=== PATIENT | female | born 1980 | race Caucasian/White ===

== ENCOUNTER 2016-05-23 07:38 | Emergency (ER) | payer OTHER ==
[2016-05-23 07:52] VITALS: BP 133/85
--- NOTE | 2016-05-23 09:44 | UC ---
Sintia Mir Michael, scribed for Tahmina Valerio DO on 05/23/16 at 0902 . Respiratory Complaint HPI - HPI Summary HPI Summary: 36 y/o female comes to [facility] presenting with intermittant episodes of a cough and wheezing episodes for the past~12 hours. Pt reports that 2 weeks ago, she developed a head cold that included some mild coughing. Those sx had all but resolved as of yesterday. The pt reports that the cough has worsened one day ago with increasing SOB. Recently, the pt has had to use her rescue inhaler to subside the cough and wheezing episodes. The pt denies ear ache, sore throat, fever, abd pain, and n/v/d. The PMHx is significant for asthma, and the FHx is significant for HTN. - History of Current Complaint Chief Complaint: UCRespiratory Stated Complaint: WHEEZING ASTHMA Time Seen by Provider: 05/23/16 08:21 Hx Obtained From: Patient, Medical Records Hx Last Menstrual Period: 05/14/16 ?: No Onset/Duration: Gradual Onset, Lasting Weeks, Still Present, Worse Since - one day ago Timing: Intermittent Episodes Severity Initially: Moderate Severity Currently: Moderate Pain Intensity: 0 Pain Scale Used: 0-10 Numeric Character: Cough: Nonproductive Aggravating Factors: Recumbent Position Alleviating Factors: Upright Position Associated Signs And Symptoms: Positive: Negative - ear ache, sore throat, fever , abd pain, and n/v/d, Dyspnea, Wheezing - non-productive cough. SOB., URI, Sinus Discomfort - resolved. Negative: Fever, Chills, Pleuritic Chest Pain, Hemoptysis, Dizziness, Calf Pain, Calf Swelling, Nasal Congestion, Hoarseness - Allergies/Home Medications Allergies/Adverse Reactions: Allergies Allergy/AdvReac Type Severity Reaction Status Date / Time seasonal allergies Allergy Hives/Diff. Uncoded 05/23/16 07:52 Breathing/I tching Home Medications: Home Medications Albuterol Sulfate [Proair Respiclick] 108 mcg IN 05/23/16 [History] Budesonide Flexhaler 90 (NF) [Pulmicort Flexhaler 90 mcg/act (NF)] 2 puff INH BID 05/23/16 [History Confirmed 05/23/16] Fexofenadine (NF) [Yenny 180 (NF)] 180 mg PO 05/23/16 [History] PMH/Surg Hx/FS Hx/Imm Hx Respiratory History Of: Reports: Asthma - Surgical History Surgical History: Yes Surgery Procedure, Year, and Place: pylonidal cyst. wisdom teeth - Family History Known Family History: Positive: Hypertension Negative: Cardiac Disease, Diabetes - Social History Occupation: Employed Full-time Lives: Alone Alcohol Use: Weekly Substance Use Type: None Smoking Status (MU): Never Smoked Tobacco Review of Systems Constitutional: Negative - fever. chills. Skin: Negative Eyes: Negative ENT: Negative - sinus discomfort, nasal congestion, ear ache all resolved. Respiratory: Shortness Of Breath, Cough, Other - wheezing Cardiovascular: Negative Gastrointestinal: Negative - n/v/d Genitourinary: Negative Motor: Negative Neurovascular: Negative Musculoskeletal: Negative Neurological: Negative Psychological: Negative All Other Systems Reviewed And Are Negative: Yes Physical Exam Triage Information Reviewed: Yes Appearance: Well-Appearing, No Pain Distress, Obese Vital Signs: Initial Vital Signs Temp 97.1 F 05/23/16 07:47 Pulse 88 05/23/16 07:47 Resp 18 05/23/16 07:47 BP 133/85 05/23/16 07:47 Pulse Ox 99 05/23/16 07:47 Vital Signs Reviewed: Yes Eyes: Positive: Conjunctiva Clear. Negative: Discharge ENT: Positive: Hearing grossly normal. Negative: Muffled/hoarse voice Neck: Positive: Supple, Nontender Respiratory: Positive: Lungs clear, Normal breath sounds, No respiratory distress, No accessory muscle use, Expiration - prolonged Cardiovascular: Positive: RRR, No Murmur Musculoskeletal: Positive: Strength Intact Neurological: Positive: Alert, Muscle Tone Normal Psychological Exam: Normal Psychological: Positive: Age Appropriate Behavior Skin Exam: Normal - warm. dry. nml color. Diagnostic Evaluation - Laboratory O2 Sat by Pulse Oximetry: 99 Respiratory Course/Dx - Differential Dx/Diagnosis Differential Diagnosis/HQI/PQRI: Asthma, Bronchitis, Lower Resp Infection, Other - uri Provider Diagnoses: asthma Discharge - Discharge Plan Condition: Stable Disposition: HOME Prescriptions: guaiFENesin ER TAB [Mucinex*] 600 mg PO BID PRN #1 box PRN Reason: Cough guaiFENesin/CODIEN 100MG-10MG* [Robitussin AC 100Mg-10Mg*] 5 - 10 ml PO BEDTIME PRN #100 udc MDD 10ml PRN Reason: Cough predniSONE TAB* [Deltasone TAB*] 40 mg PO DAILY #10 tab Patient Education Materials: Asthma (ED) Referrals: Broderick Momin MD [Medical Doctor] - Additional Instructions: INHALED BRONCHODILATORS: You have received a prescription for an inhaled bronchodilator -- a medication which stimulates the airways in the lung to dilate. This improves the flow of air in asthma, bronchitis, and emphysema. These medicines have some similarity to adrenaline, and can cause similar side effects: shakiness, racing heart, and a sense of nervousness. These side effects decrease with time. Contact your doctor if these side effects are severe. Do not over-use the medicine. Too-frequent use of the inhaler may make it ineffective. Call your doctor if the inhaler is not controlling your symptoms at the prescribed doses. COUGH-SUPPRESSANT & EXPECTORANT MEDICATION: You are to use a cough medication as needed for relief of symptoms. This medicine is a combination of an expectorant (to make the mucous thinner and more easily "coughed up") and a cough suppressant (to reduce the frequency of coughing). The cough-suppressant medicine is related to narcotics. You may experience mild nausea and sleepiness. Some patients who are very sensitive to narcotics may have stomach pain from this medicine. Taking the medicine with food reduces these side effects. Do not drive or work with machinery until you know how this medicine affects you. The expectorant should have no side effects. Iodine-containing expectorants (such as organidin) should not be taken by persons with active thyroid disease unless approved by your doctor. Call the doctor if you develop shortness of breath, hives, rash, itching, lightheadedness, or severe nausea and vomiting. EXPECTORANT MEDICATION: An expectorant medicine has been prescribed. This type of drug makes mucous thinner, helping the sinuses, nose, and bronchial tubes to remain free of pus and mucous. Expectorants make a cough less severe and more comfortable, and help infected sinuses drain. In general, antihistamines defeat the purpose of the expectorant by making mucous thicker. They should be avoided unless specifically recommended by your physician. CORTICOSTEROID MEDICATION: You have been given a medicine of the cortisone class. This medication is used to control inflammation or allergy. It is usually only given for a short period of time, until the acute process subsides. There are usually no side effects from short-term use of cortisone-like medications. Some persons feel an increased sense of well-being and are not sleepy at bedtime. Long-term use of cortisone medications is best avoided, unless required for a severe condition. If your condition does not remit, or relapses after the course of corticosteroid medication, you should consult your physician. Contact the physician if you develop lightheadedness, black or tarry stools , swelling of the legs, or significant rapid change in weight. The documentation as recorded by the Sintia wells Michael accurately reflects the service I personally performed and the decisions made by me, Tahmina Valerio DO.
== END 2016-05-23 09:30 | disposition home or self-care (01) ==
LOC: UCEAST 07:38
DX: J45.909 Unspecified asthma, uncomplicated (principal)
CPT/HCPCS: 99212; G0463

== ENCOUNTER 2018-06-29 09:20 | Emergency (ER) | payer OTHER ==
[2018-06-29] MEDS ORDERED: NS 0.9% 1000 ML** 1,000 ML IV ONE (09:57)
--- NOTE | 2018-06-29 10:08 | ED ---
GI/ HPI - HPI Summary HPI Summary: Patient is a 38-year-old female who presents emergency department for heavy vaginal bleeding 48 hours. Patient states she has a history of uterine fibroids and sees CORRECTIONS IDENTIFICATION TECHNICIAN, Dr. Barone. Patient currently on oral contraceptives states she's not due for her menstrual cycle until next week. Patient states she typically has heavy bleeding but this is abnormal for her today. She is notes changing a pad and tampon every 1 hour. She also notes elevated heart rate, lightheadedness and dizziness. Symptoms are moderate in severity. No current modifying factors. Pt. states she spoke with Dr. Barone yesterday regarding bleeding and he wanted her to triple control and take 3 tablets per day until bleeding started to decrease and then go to 2 and 1. Pt. states she is on her second round of 3 tablets QD. - History of Current Complaint Chief Complaint: EDVaginalBleeding Time Seen by Provider: 06/29/18 09:56 Stated Complaint: HEAVY MENSTRAL BLEEDING FOR 48HOURS PER PT Hx Obtained From: Patient Hx Last Menstrual Period: 05/14/16 Pain Intensity: 3 - Allergy/Home Medications Allergies/Adverse Reactions: Allergies Allergy/AdvReac Type Severity Reaction Status Date / Time No Known Allergies Allergy Verified 06/29/18 09:32 Home Medications: Home Medications Fluticasone HFA 110 mcg(NF) [Flovent HFA 110 mcg(NF)] 1 puff INH BID 06/29/18 [ History Confirmed 06/29/18] Metformin HCl 500 mg PO BID 06/29/18 [History Confirmed 06/29/18] Norethindrone/Eth Est 1.5NF [Junel 1.08/17 (NF)] 1 tab PO DAILY 06/29/18 [ History Confirmed 06/29/18] PMH/Surg Hx/FS Hx/Imm Hx Previously Healthy: Yes Respiratory History: Reports: Hx Asthma - Surgical History Surgery Procedure, Year, and Place: pylonidal cyst. wisdom teeth Infectious Disease History: No Infectious Disease History: Denies: Traveled Outside the [place] in Last 30 Days - Family History Known Family History: Positive: Hypertension Negative: Cardiac Disease, Diabetes - Social History Occupation: Employed Full-time Lives: Alone Alcohol Use: Weekly Alcohol Amount: wine/beer Substance Use Type: Reports: None Smoking Status (MU): Never Smoked Tobacco Review of Systems Constitutional: Negative Negative: Fever, Chills Cardiovascular: Negative Negative: Chest Pain Respiratory: Negative Negative: Shortness Of Breath Gastrointestinal: Negative Negative: Abdominal Pain Positive: other - vaginal bleeding All Other Systems Reviewed And Are Negative: Yes Physical Exam Triage Information Reviewed: Yes Vital Signs On Initial Exam: Initial Vitals Temp Pulse Resp BP Pulse Ox 98 F 119 16 147/85 97 06/29/18 09:31 06/29/18 09:31 06/29/18 09:31 06/29/18 09:31 06/29/18 09:31 Vital Signs Reviewed: Yes Appearance: Positive: Well-Appearing - Pt. sitting up in bed in NAD. Skin: Positive: Warm, Dry Head/Face: Positive: Normal Head/Face Inspection Eyes: Positive: Normal, EOMI Neck: Positive: Supple Abdomen Description: Positive: Nontender, Soft Pelvic Exam: Positive: Other - Pelvic exam performed with Concepcion Mantilla. External genitalia unremarkable. Speculum exam reveals moderate about of bright red blood from cervix. No clots. Neurological: Positive: Normal, CN Intact II-III Diagnostics - Vital Signs Vital Signs Temp Pulse Resp BP Pulse Ox 06/29/18 09:53 119 130/71 98 06/29/18 09:52 120 97 06/29/18 09:31 98 F 119 16 147/85 97 - Laboratory Result Diagrams: 06/29/18 10:25 06/29/18 10:25 Lab Statement: Any lab studies that have been ordered have been reviewed, and results considered in the medical decision making process. GIGU Course/Dx - Course Course Of Treatment: Pt. presenting with heavy vaginal bleeding. HR elevated in the 120's. Stable BP. Pt. started on IV fluids. Pelvic shows mild-moderate bleeding. Will check basic labs. Hemoglobin stable at 11.6. Negative . HR improved to normal with fluids. I spoke with oncall CORRECTIONS IDENTIFICATION TECHNICIAN, Dr. Blue. Dr. Bran recommends adding Motrin 600mg q 6 x 48 hours. Results and plan discussed with pt. She will continue finishing tripling BC today and then go to 2 and then 1. Motrin 600mg Q6 x 48 hours. To increase fluids and rest. To return to ER for ongoing bleeding, light headed, dizzy, syncope. Pt. understands and agrees with plan. - Diagnoses Provider Diagnoses: Uterine fibroid, Vaginal bleeding Discharge - Sign-Out/Discharge Documenting (check all that apply): Patient Departure Patient Received Moderate/Deep Sedation with Procedure: No - Discharge Plan Condition: Improved Disposition: HOME Patient Education Materials: Dysfunctional Uterine Bleeding (ED) Forms: *Work Release Referrals: Koffi Barone MD [Medical Doctor] - Broderick Momin MD [Medical Doctor] - Additional Instructions: Schedule a follow up appointment with Dr. Barone for tom or Tuesday Can continue Dr. Barone's recommendations of tripling control pills and then go to 2 tablets tomorrow x 48 hours Take ibuprofen 600mg every 6 hours x 48 hours Increase fluids and rest Return to ER for ongoing bleeding, light headed, dizzy, chest pain, shortness of breath or if concerned - Billing Disposition and Condition Condition: IMPROVED Disposition: Home
[2018-06-29 10:34] LABS: ABS Basophils 0.1 10^3/ul (0-0.2); ABS Eosinophils 0.1 10^3/ul (0-0.6); ABS Lymphocytes 2.5 10^3/ul (1.0-4.8); ABS Monocytes 0.4 10^3/ul (0-0.8); ABS Neutrophils 7.1 10^3/ul (1.5-7.7); ABS Nucleated RBC 0 10^3/ul; Hematocrit 34 % (33-41); Hemoglobin 11.6 g/dL (12.0-16.0); Lymphocyte % 24.3 %; Mean Corpuscular HGB Conc 34 g/dL (31-36); Mean Corpuscular Hemoglobin 30 pg (27-31); Mean Corpuscular Volume 89 fL (80-97); Mean Platelet Volume 8.8 fL (7.4-10.4); Nucleated Red Blood Cells % 0; Platelet Count 252 10^3/uL (150-450); Red Blood Count 3.88 10^6 /uL (3.70-4.87); Red Cell Distribution Width 14 % (10.5-15); White Blood Count 10.1 10^3/uL (3.5-10.8)
[2018-06-29 10:51] LABS: Anion Gap 9 mmol/L (2-11); BUN/Creatinine Ratio 15.4 (8-20); Blood Urea Nitrogen 12 mg/dL (6-24); CO2 Carbon Dioxide 23 mmol/L (22-32); Calcium 9.3 mg/dL (8.6-10.3); Chloride 110 mmol/L (101-111); EGFR African American 100.6 (>60); EGFR Non-African American 83.1 (>60); Glucose 112 mg/dL (70-100); Potassium 3.8 mmol/L (3.5-5.0); Sodium 142 mmol/L (135-145)
[2018-06-29 10:58] LABS: HCG Pregnancy < 0.60 mIU/mL
[2018-06-29 12:57] VITALS: BP 124/72
== END 2018-06-29 12:55 | disposition home or self-care (01) ==
LOC: ED 09:20
DX: J45.909 Unspecified asthma, uncomplicated (principal); Z79.51 Long term (current) use of inhaled steroids; D25.9 Leiomyoma of uterus, unspecified; N93.9 Abnormal uterine and vaginal bleeding, unspecified
CPT/HCPCS: 36415; 80048; 84702; 85025; 86900; 86901; 96360; 96361; 99282

== ENCOUNTER 2018-07-27 12:12 | Observation (INO) | payer OTHER ==
[2018-07-27 12:54] LABS: ABS Eosinophils 0.2 10^3/ul (0-0.6); ABS Lymphocytes 2.6 10^3/ul (1.0-4.8); ABS Monocytes 0.3 10^3/ul (0-0.8); ABS Neutrophils 5.5 10^3/ul (1.5-7.7); Eosinophil % 2.2 %; Hematocrit 35 % (35-47); Hemoglobin 11.7 g/dL (12.0-16.0); Lymphocyte % 30.2 %; Mean Corpuscular HGB Conc 34 g/dL (31-36); Mean Corpuscular Hemoglobin 30 pg (27-31); Mean Corpuscular Volume 88 fL (80-97); Mean Platelet Volume 8.5 fL (7.4-10.4); Platelet Count 270 10^3/uL (150-450); Red Blood Count 3.96 10^6 /uL (3.70-4.87); Red Cell Distribution Width 14 % (10.5-15); White Blood Count 8.7 10^3/uL (3.5-10.8)
[2018-07-27 13:01] LABS: Anion Gap 7 mmol/L (2-11); BUN/Creatinine Ratio 12.1 (8-20); Blood Urea Nitrogen 11 mg/dL (6-24); CO2 Carbon Dioxide 24 mmol/L (22-32); Calcium 9.5 mg/dL (8.6-10.3); Chloride 108 mmol/L (101-111); EGFR African American 84.2 (>60); EGFR Non-African American 69.6 (>60); Glucose 90 mg/dL (70-100); Sodium 139 mmol/L (135-145)
[2018-07-27 13:08] LABS: HCG Pregnancy < 0.60 mIU/mL
[2018-07-27] MEDS ORDERED: Ondansetron INJ* 2 MG/ML VIAL ONE ×2 (13:13→14:05)
[2018-07-27] MEDS ORDERED: Scopolamine 1.5 mg* PATCH ONE (13:13)
[2018-07-27] MEDS ORDERED: Naproxen TAB* 250 MG ONE (13:14)
[2018-07-27] MEDS ORDERED: LORazepam TAB(*) 1 MG ONE (13:14)
[2018-07-27] MEDS ORDERED: oxyCODONE SR TAB(*) 10 MG TAB.SR ONE (13:14)
[2018-07-27] MEDS ORDERED: Midazolam* 1 MG/ML 5 ML VIAL (5 MG) ONE (13:53)
[2018-07-27] MEDS ORDERED: fentaNYL* 50 MCG/ML 5 ML VIAL (250 MCG VIAL) ONE (13:53)
[2018-07-27] MEDS ORDERED: nitroGLYCERIN DRIP* 25,000 MCG/250 ML BTL ONE (13:54)
[2018-07-27] MEDS ORDERED: Iohexol 350 (CONTRAST) 200 ML MDV IV ONE ×2 (13:54→15:54)
[2018-07-27] MEDS ORDERED: Lidocaine 1% INJ* 10 MG/ML 30 ML SDV ONE (13:54)
[2018-07-27] MEDS ORDERED: Ketorolac INJ* 30 MG/ML 1 ML VIAL ONE ×3 (13:55→16:15)
[2018-07-27] MEDS ORDERED: Clindamycin 900 MG/D5W BAG(*) 900 MG/50 ML BAG IVPB ONE (14:00)
[2018-07-27] MEDS ORDERED: Heparin(*) 1000 UNIT/ML 10 ML VIAL CATH LAB IV ONE (14:06)
[2018-07-27] MEDS ORDERED: VERAPAMIL 2.5 MG/ML 2 ML VIAL ** 5 mg/2 ml ONE (14:06)
[2018-07-27] MEDS ORDERED: HYDROmorphone INJ1* 1 MG/ML SYRINGE ONE (16:05)
[2018-07-27] MEDS ORDERED: HYDROmorphone PCA* 20 MG/20 ML PCA.SYRING ONE (16:24)
[2018-07-27] MEDS ORDERED: Mometasone 220 MCG MDI INH SCH (18:00)
[2018-07-27] MEDS ORDERED: ASA-APAP-CAFFEINE ES (NF) 1 TAB TAB PO PRN (18:28)
[2018-07-27] MEDS ORDERED: Albuterol HFA INHALER* 8 gm MDI INH PRN (18:28)
[2018-07-27] MEDS ORDERED: Dextrose 50% Syringe 50 ML* 25 GM/50 ML SYRINGE IV PUSH PRN (18:29)
--- NOTE | 2018-07-27 19:27 | PN ---
Progress Note - Progress Note Date of Service: 07/27/18 SOAP: Subjective: Patient with intermittent pain up to 5/10, but "okay" with the "clicker". No nausea or emesis. Has had sips of water. Objective: Selected Entries 07/27/18 07/27/18 18:16 18:29 Temperature 96.7 F Pulse Rate 61 Heart Rate 58 Respiratory 19 Rate Blood Pressure 137/68 (mmHg) O2 Sat by Pulse 98 Oximetry Oxygen Flow 3 Rate Sleepy, but arousable. 2+ left radial pulse tegaderm dressing overlying arteriotomy is clean & dry left hand is warm to touch left hand motor function is grossly intact left hand light sensation intact abd is soft, minimally tender to palpation Assessment: 38 YOF s/p left radial artery access uterine fibroid arterial embolization. Pain and nausea is well controlled. Plan: 1. D/C chatterjee. 2. Advance diet cautiously. 3. Routine post UFE IR protocol for pain and nausea control. 4. Medical management per hospitalist service.
[2018-07-27] MEDS: Norethindrone/Eth Est 1.5/30NF 1 TAB TAB PO SCH (19:32)
[2018-07-27] MEDS: Ketorolac INJ* 15 MG/ML 1 ML VIAL IV PUSH SCH (19:37)
[2018-07-27] MEDS: Ondansetron INJ* 2 MG/ML VIAL IV SCH (19:38)
[2018-07-27] MEDS ORDERED: HYDROmorphone PCA 1 MG/ML Titrat per Protocol PCA SCH (20:00)
--- NOTE | 2018-07-27 20:20 | HP ---
CC: Dr. Broderick Momin* HISTORY AND PHYSICAL: DATE OF ADMISSION: 07/27/18 PRIMARY CARE PROVIDER: Dr. Broderick Momin. PROVIDER: AZAM Vail ATTENDING PHYSICIAN: Dr. Shanae Milner* (dictated by AZAM Vail). CHIEF COMPLAINT: Premenopausal abnormal uterine bleeding, status post uterine fibroid embolization. HISTORY OF PRESENT ILLNESS: Clare Landers is a 38-year-old white female with past medical history of asthma, uterine fibroids, PCOS, migraines, depression, anxiety, and hyperglycemia, who presents for an elective uterine fibroid embolization with Dr. Alan boyle. The patient is post-procedure day 0, and the hospitalist medicine team is asked to admit the patient to the hospital. The patient had heavy menstrual bleeding for many years, but since December 2017 has been experiencing a more heavy flow and in addition to irregular bleeding. She had an endometrial biopsy on 07/17/18, which was found to be without hyperplasia or malignancy. MRI on the same date demonstrated uterine fibroids at the anterior midline fundus and posterior myometrium. Please see the MRI report from 07/17/18 for further details. At the time of evaluation, the patient is in the PACU, accompanied by her mother and she is having intermittent abdominal cramping. When the cramping is not occurring, she is having no abdominal pain at all. When she is experiencing the cramping, she is having lower abdominal pain of 8/10. Additionally, nursing notes that she is frequently bradycardic to the 40s in the PACU. Otherwise, the patient denies chest pain, difficulty breathing, headache, nausea, vomiting, fever, or chills. PAST MEDICAL HISTORY: 1. Asthma. 2. Uterine fibroids. 3. PCOS. 4. Migraine. 5. Depression. 6. Anxiety. 7. Environmental allergies. 8. Hyperglycemia. PAST SURGICAL HISTORY: 1. Pilonidal cystectomy. 2. [place] teeth extraction. HOME MEDICATIONS: 1. Metformin 500 mg p.o. b.i.d. 2. Fexofenadine 180 mg p.o. daily. 3. ProAir 180 mcg 2 puffs inhaled q.6 hours p.r.n. shortness of breath or wheezing. 4. Flovent 110 mcg 2 puffs inhaled daily. 5. Excedrin p.r.n. migraines. 6. 1 tab p.o. daily. ALLERGIES: No known drug allergies. FAMILY HISTORY: Father had an GA at age 62 approximately, he is currently living at age 72. Mother is currently living at age 72, has a history of melanoma. There is history of depression, anxiety, and migraines in women in her family. SOCIAL HISTORY: The patient is not and does not have children. 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 She has never been a smoker and denies drug use. She drinks 2 to 3 alcoholic beverages per week. REVIEW OF SYSTEMS: An 11-point review of systems was completed, and all pertinent positives and negatives are above in the HPI. All other systems are negative. PHYSICAL EXAMINATION GENERAL: White obese female, lying in PACU stretcher, appearing diaphoretic, but otherwise in no acute distress. Mother at bedside. HEENT: Head: Normocephalic, atraumatic. Eyes: PERRL, EOMI, sclerae anicteric. ENT: Lips appear dry. NECK: Without JVD. Neck is supple. RESPIRATORY: Lungs are clear to auscultation. Chest expansion is symmetrical with respirations. CARDIO: Regular rhythm with rate approximately 50 beats per minute. No murmurs , rubs, or gallops appreciated. ABDOMEN: Normoactive bowel sounds x4 quadrants. Tenderness to palpation midline lower abdomen, otherwise no tenderness elsewhere. Abdomen is soft, nondistended. No masses palpated. EXTREMITIES: No edema, cyanosis, or clubbing. Left wrist in brace and with Vasc Band. NEUROLOGIC: The patient is alert and oriented x3. The patient is able to move all extremities equally. No focal deficits. PSYCH: The patient is pleasant and cooperative. SKIN: Skin is warm, minimally diaphoretic, and intact. DIAGNOSTIC STUDIES/LAB DATA: White blood cell count 8.7, hemoglobin 11.7, hematocrit 35, platelet count 270. Sodium 139, potassium 4, chloride 108, carbon dioxide 24, BUN 11, creatinine 0.91, glucose 90, calcium 9.5. Beta hCG is negative. ASSESSMENT AND PLAN: Clare Landers is a 38-year-old white female with past medical history significant for uterine fibroids, polycystic ovarian syndrome, asthma, migraines, depression and anxiety, and hyperglycemia, who has elected for uterine fibroid embolization with Dr. Phillips and is admitted to the hospital for postprocedural management. The patient will be admitted in observation for: 1. Status post uterine fibroid embolization. Confirmed to have uterine fibroids on MRI in June 2018. She has been experiencing abnormal uterine bleeding, which has worsened in the last 7 months. H and H demonstrates a mild anemia, which is not far from her baseline. We will continue to monitor this. She will remain in a left wrist brace per [facility] protocol, and her Vasc Band at the left wrist will be deflated per [facility] protocol. She will have continuous pulse oximetry. Her pain will be controlled with Toradol and Dilaudid PURIFICATION DIRECTOR. P.r.n. Zofran is ordered. The patient will receive water and ice chips this evening and a clear liquid diet has been ordered for tomorrow morning and this diet can be advanced slowly as tolerated. We will continue her home . 2. Hyperglycemia, polycystic ovarian syndrome. The patient takes metformin at home. We will hold this in the postprocedural setting. I will add a.c./h.s. fingersticks and lispro sliding scale. 3. Asthma. Continue home inhalers of ProAir and Flovent. 4. Bradycardia. Patient was frequently bradycardic to the 40s in PACU. She was normotensive and asymptomatic. Patient will be admitted on telemetry and will continue to monitor. 5. Depression and anxiety. The patient does not take medication at home and is stable at this time. 6. FEN. The patient's electrolytes are within normal limits. Diet of ice chips today and will advance as tolerated with clear liquid diet starting tomorrow morning. 7. DVT prophylaxis. The patient has a DVT risk score of 1 and will ambulate 3 times a day. SCDs have been ordered. 8. Code status. The patient is full code. The patient's mother, Lizzy Landers, would be the patient's surrogate medical decision maker should she need one. Her phone number is [phone]. TIME SPENT: Approximately 50 minutes was spent on this history and physical; approximately half of this time was spent at bedside. This case has been reviewed by my attending physician, Dr. Shanae Milner, and she agrees with this assessment and plan of care. AZAM VAIL [id number]/[facility] #: [id number] CHIVO
[2018-07-27] MEDS: Insulin LISPRO* 1 UNITS UNIT SUBCUT SCH (21:11)
[2018-07-27] MEDS ORDERED: NS 0.9% KEEP VEIN OPEN IV SCH (21:30)
[2018-07-28] MEDS: Ketorolac INJ* 15 MG/ML 1 ML VIAL IV PUSH SCH ×2 (02:17→07:50)
[2018-07-28] MEDS: Ondansetron INJ* 2 MG/ML VIAL IV SCH ×2 (02:18→07:50)
[2018-07-28 06:45] LABS: ABS Lymphocytes 2.1 10^3/ul (1.0-4.8); ABS Monocytes 0.4 10^3/ul (0-0.8); ABS Neutrophils 6.5 10^3/ul (1.5-7.7); Eosinophil % 0.2 %; Hematocrit 32 % (35-47); Hemoglobin 10.8 g/dL (12.0-16.0); Lymphocyte % 23.2 %; Mean Corpuscular HGB Conc 33 g/dL (31-36); Mean Corpuscular Hemoglobin 30 pg (27-31); Mean Corpuscular Volume 89 fL (80-97); Mean Platelet Volume 8.6 fL (7.4-10.4); Platelet Count 264 10^3/uL (150-450); Red Blood Count 3.65 10^6 /uL (3.70-4.87); Red Cell Distribution Width 14 % (10.5-15); White Blood Count 9.1 10^3/uL (3.5-10.8)
[2018-07-28 07:08] LABS: BUN/Creatinine Ratio 11.5 (8-20); Calcium 8.3 mg/dL (8.6-10.3); EGFR African American 100.6 (>60); EGFR Non-African American 83.1 (>60); Potassium 4.3 mmol/L (3.5-5.0)
[2018-07-28] MEDS: Insulin LISPRO* 1 UNITS UNIT SUBCUT SCH ×3 (07:47→17:24)
[2018-07-28] MEDS: Norethindrone/Eth Est 1.5/30NF 1 TAB TAB PO SCH (07:47)
--- NOTE | 2018-07-28 08:52 | PN ---
Progress Note - Progress Note Date of Service: 07/28/18 SOAP: Subjective: Pain controlled at 03/30. No significant nausea. No emesis. Has had clear liquids over night. + void. Denies left wrist pain or any left hand symptoms. Objective: Selected Entries 07/28/18 07/28/18 03:17 07:00 Temperature 98.1 F Temperature Oral Source Pulse Rate 51 Respiratory 16 Rate Blood Pressure 146/74 (mmHg) Blood Pressure 93 Mean O2 Sat by Pulse 96 Oximetry NAD, AAO x 3 Left radial pulse is 2+. Tegaderm over left radial arteriotomy is clean & dry. Left hand warm to touch. Left hand motor function and sensation to light touch is intact. Minimal tenderness elicited when palpating uterine fundus. No rebound our guarding. Assessment: 38 YOF POD #1 left radial arteriotomy uterine fibroid arterial embolization with pain & nausea well controlled. Plan: 1. Transition IV to PO. 2. Ambulation with assitance at least every 90 minutes. 3. Advance diet cautiously. Discharge medications will most likely be as follows: Toradol 10 mg PO Q 6 hours x 3 days (Dispense #15 with one refill) AFTER Toradol is complete: Ibuprofen 400 mg PO Q 6 hours OR Naprosyn 225 mg PO Q 8 hours for 3-5 days (do not take both) [place] 5/325, take 1 or 2 tablets by mouth Q 6 hours PRN breakthrough pain ( Dispense #40) Zofran 4 mg PO Q 6 hours x 7 days (Dispense #30 with one refill) Scopolamine 1.5 mg TD to mastoid process. 07/30/18 at 900 AM, remove current patch, replace with new patch and wear x 3 days. Drink one cup of laxative tea daily (For example, "Smooth Move") for one week.
[2018-07-28] MEDS: HYDROcodone/ACETAMIN 5-325 MG* 1 TAB PO PRN ×3 (10:06→16:09)
[2018-07-28] MEDS ORDERED: PROCHLORPERAZINE INJ 5 MG/ML 2 ML VIAL IV ONE (11:35)
[2018-07-28] MEDS ORDERED: PROCHLORPERAZINE INJ 5 MG/ML 2 ML VIAL ONE (11:35)
--- NOTE | 2018-07-28 12:56 | DS ---
AMENDED REPORT NOW INCLUDES DESIGNATED COSIGNER CC: Dr. Barone; Dr. Momin * HOSPITAL MEDICINE DISCHARGE SUMMARY: DATE OF ADMISSION: 07/27/18 DATE OF DISCHARGE: 07/28/18 PRIMARY CARE PHYSICIAN: Dr. Momin. LOCOMOTIVE CRANE OPERATOR: Dr. Barone. ATTENDING PHYSICIAN: Dr. Velarde *(dictation provided by Fallon Landers NP). PRIMARY DIAGNOSIS: Status post uterine fibroid embolization. SECONDARY DIAGNOSES: 1. Asthma. 2. History of uterine fibroids. 3. Polycystic ovarian syndrome. 4. Migraine. 5. Depression. 6. Anxiety. 7. Environmental allergies. 8. Hyperglycemia. MEDICATIONS AT THE TIME OF DISCHARGE: Are as follows: 1. Junel 1 tablet p.o. daily. 2. Metformin 500 mg p.o. b.i.d. 3. Fluticasone nasal spray 1 puff inhaled b.i.d. 4. Fexofenadine 180 mg p.o. daily. 5. Excedrin extra strength 1 capsule p.o. q.6 hours p.r.n. 6. Albuterol p.r.n. 7. Scopolamine patch 1 patch transdermally q.72 hours x1. 8. Ondansetron 4 mg p.o. q.6 hours p.r.n. 9. Ketorolac 10 mg p.o. q.6 hours p.r.n. (not to be combined with ibuprofen- containing products). 10. Ibuprofen p.r.n. 11. Hydrocodone with acetaminophen 5/325 mg 1 to 2 tablets p.o. q.6 hours p.r.n. HOSPITAL COURSE: Ms. Landers is 38-year-old female with past medical history as outlined above, who presented to the hospital for a planned uterine fibroid embolization with Dr. Phillips on 07/27/18. Please see dictated H and P from [facility] for complete details. In brief, the patient has had abnormal uterine bleeding and had been found to have fibroids. Despite treatment with oral contraceptive pills, she continued to have breakthrough bleeding and discomfort, and therefore opted for uterine fibroid embolization with Dr. Phillips. The patient underwent the procedure yesterday and tolerated it well. Today, she is feeling better. She has been up and ambulating. She is tolerating oral intake and she is currently on oral pain medications. We will continue to monitor her through the afternoon and if she continues to do well and ambulate with good pain control and no significant nausea or vomiting, she will be discharged to home this afternoon. Ms. Landers is medically stable for discharge to home. She will be following up closely with Dr. Phillips and his team per routine. She has been provided with extensive discharge instructions. Please see the chart for complete details. DISPOSITION: Home. DIET: Regular. ACTIVITY: As tolerated with the following limitations: He may resume showering , but avoid tub bath, hot tubs or swimming for 1 week. Avoid strenuous exercise and activity for 1 week. Slowly increase her activity after the first week. Pelvic rest for 4 weeks, avoid vaginal intercourse and tampon usage. Should not drive until no longer taking prescription pain medication. FOLLOWUP PLANS: Please follow up with Dr. Phillips in 6 weeks. TIME SPENT: Approximately 60 minutes was spent on the discharge of this patient , more than half of the time was spent with her at the bedside reviewing the events leading up and during this hospitalization, performing the physical examination and reviewing my plan of care. FALLON LANDERS, BRANDAN [id number]/[facility] #: [id number] CHIVO
--- NOTE | 2018-07-28 13:32 | PN ---
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 Emesis x 1 shortly after taking PO [place]. Nausea currently controlled with compazine. + void. + ambulation. Objective: Selected Entries 07/28/18 11:28 Temperature 98.5 F Temperature Oral Source Pulse Rate 75 Respiratory 18 Rate Blood Pressure 150/71 (mmHg) Blood Pressure 91 Mean O2 Sat by Pulse 94 Oximetry Patient on Room Yes Air Sitting up in bed, dressed and conversant. Access site remains soft, nontender with 2+ pulse. Left hand motor function and sensation are grossly intact. Mild tenderness elicited when palpating uterine fundus. Assessment: 38 YOF POD #1 UFE with episode of emesis x 1. Patient has been without nausea since compazine injection. Plan: 1. Compazine 10 mg PO every 6 hours x 7 days. 2. D/C Zofran. 3. D/C BEATING MACHINE OPERATOR.
[2018-07-28] MEDS ORDERED: HYDROmorphone INJ1* 1 MG/ML SYRINGE IV SLOW PU PRN (13:34)
[2018-07-28] MEDS ORDERED: Ketorolac TAB * 10 MG TAB PO SCH (14:00)
[2018-07-28] MEDS ORDERED: Ondansetron TAB* 4 MG PO SCH (14:00)
[2018-07-28 17:22] VITALS: BP 132/70
[2018-07-28] MEDS ORDERED: Prochlorperazine TAB* 10 MG PO SCH (17:30)
[2018-07-28] MEDS ORDERED: Cetirizine* 10 MG TAB PO SCH (18:00)
== END 2018-07-28 17:30 | disposition home or self-care (01) ==
LOC: CHICATH 12:12 → SSU 18:57
PROVIDERS: ADMIT Internal Medicine; ATTEND Student in an Organized Health Care Education/Training Program
DX: N92.4 Excessive bleeding in the premenopausal period (principal); J45.909 Unspecified asthma, uncomplicated; Z87.42 Personal history of other diseases of the female genital tract; E28.2 Polycystic ovarian syndrome; G43.909 Migraine, unspecified, not intractable, without status migrainosus; F32.9 Major depressive disorder, single episode, unspecified; Z91.09 Other allergy status, other than to drugs and biological substances; R73.9 Hyperglycemia, unspecified; R10.2 Pelvic and perineal pain
CPT/HCPCS: 36415; 37243; 75625; 75736; 76937; 80048; 83036; 84702; 85025; 99156; 99157; A9270-GY; C1769; C1884; C1887; G0378; J0780; J1170; J1644; J1885; J2250; J2405; J3010; Q0164

== ENCOUNTER 2019-02-08 17:48 | Emergency (ER) | payer OTHER ==
--- NOTE | 2019-02-08 18:48 | UC ---
Skin Complaint HPI - HPI Summary HPI Summary: Patient is a 39-year-old feel presented with complaint of skin abscess on lower left abdomen. Patient states his been there for a few days but last night she attempted to "pop it herself." Patient stated that all she did was make it bleed a little bit. States no purulent drainage came out. Notes mild tenderness of the abscess. Patient states she is most concerned with the redness and warmth that began this morning and increase in size by the time she got home from work. Denies fever and chills. Denies nausea or vomiting. Patient states she has had skin abscesses in the past that usually resolve with some warm compresses. - History of Current Complaint Chief Complaint: UCSkin Stated Complaint: SKIN ABCESS Hx Obtained From: Patient Hx Last Menstrual Period: first of december Onset/Duration: Gradual Onset, Lasting Days Current Severity: Mild Pain Intensity: 4 Pain Scale Used: 0-10 Numeric - Allergy/Home Medications Allergies/Adverse Reactions: Allergies Allergy/AdvReac Type Severity Reaction Status Date / Time No Known Allergies Allergy Verified 07/26/18 16:06 Home Medications: Home Medications Aspirin/Acetaminophen/Caffeine [Excedrin Extra Strength Caplet] 2 each PO ONCE PRN 02/08/19 [History Confirmed 02/08/19] PMH/Surg Hx/FS Hx/Imm Hx Endocrine History: Diabetes - Surgical History Surgical History: Yes Surgery Procedure, Year, and Place: pylonidal cyst. wisdom teeth. surgery for uterine fibroids july 2018 - Family History Known Family History: Positive: Hypertension Negative: Cardiac Disease, Diabetes - Social History Occupation: Employed Full-time Lives: Alone Alcohol Use: Occasionally Alcohol Amount: wine/beer Substance Use Type: None Smoking Status (MU): Never Smoked Tobacco Review of Systems All Other Systems Reviewed And Are Negative: Yes Constitutional: Positive: Negative. Negative: Fever, Chills Skin: Positive: Other - skin abscess on abdomen Respiratory: Positive: Negative Cardiovascular: Positive: Negative Gastrointestinal: Positive: Negative. Negative: Vomiting, Nausea Musculoskeletal: Positive: Negative Neurological: Positive: Headache Physical Exam Triage Information Reviewed: Yes Appearance: Well-Appearing, No Pain Distress, Well-Nourished Vital Signs: Initial Vital Signs Temp 97.9 F 02/08/19 18:03 Pulse 99 02/08/19 18:03 Resp 18 02/08/19 18:03 BP 133/87 02/08/19 18:03 Pulse Ox 98 02/08/19 18:03 Vital Signs Reviewed: Yes Eyes: Positive: Conjunctiva Clear ENT: Positive: Hearing grossly normal Neck: Positive: Supple Respiratory Exam: Normal Respiratory: Positive: Lungs clear, Normal breath sounds, No respiratory distress Cardiovascular Exam: Normal Cardiovascular: Positive: RRR Neurological: Positive: Alert Psychological: Positive: Age Appropriate Behavior Skin: Positive: Other - 2cm fluctuant abscess noted on L lower abdomen surrounded by large area of erythema and warmth that extends medially to midline abdomen Procedures - Incision and Drainage Left Lower Abdomen Anesthesia: Lidocaine - 1% Instrument(s): Scalpel Course/Dx - Course Course Of Treatment: I performed an I&D of the patient's abscess. Patient tolerated procedure well. Patient also received shot of Rocephin here in addition to prescription for Bactrim to treat cellulitis. I also rene an outline around the area of redness. I educated patient on abscesses and cellulitis and signs and symptoms of worsening cellulitis that warrant going to the emergency room. Instructed to take antibiotics and continue with warm compresses. Directed patient to go to the emergency room if she experiences any new or worsening symptoms. Patient voiced understanding and agreed with the treatment plan. - Diagnoses Provider Diagnosis: Abscess, Cellulitis Discharge ED - Sign-Out/Discharge Documenting (check all that apply): Patient Departure All imaging exams completed and their final reports reviewed: No Studies - Discharge Plan Condition: Stable Disposition: HOME Prescriptions: Sulfamethox/Trimethoprim DS* [Bactrim DS 800/160 TAB*] 1 tab PO BID #14 tab Patient Education Materials: Cellulitis (ED), Abscess (ED) Referrals: [facility] [Outside] - If Needed Additional Instructions: As discussed, take Bactrim as prescribed for the treatment of your skin infection. You also received a shot of an antibiotic here in the urgent care as well. You may apply warm compresses to the area 2-3x daily. Follow up with the [facility] or dermatology referral listed below if abscess persists. Go to the emergency room if you experience fever, increasing redness and warmth to the area, drainage, or nausea and vomiting. - Billing Disposition and Condition Condition: STABLE Disposition: Home
[2019-02-08] MEDS ORDERED: cefTRIAXone VIAL(*) 1,000 MG VIAL IM ONE (18:57)
[2019-02-08] MEDS ORDERED: Lidocaine 1% MPF ** 5 ML VIAL INJ ONE (18:57)
[2019-02-08] MEDS ORDERED: Lidocaine 1% MPF ** 5 ML VIAL IM ONE (19:01)
[2019-02-08 20:15] VITALS: BP 130/76
== END 2019-02-08 19:55 | disposition home or self-care (01) ==
LOC: UCEAST 17:48
DX: L02.211 Cutaneous abscess of abdominal wall (principal); L03.311 Cellulitis of abdominal wall; E11.9 Type 2 diabetes mellitus without complications
CPT/HCPCS: 10060; 96372; 99212; G0463; J0696

== ENCOUNTER 2019-03-07 07:09 | Emergency (ER) | payer OTHER ==
[2019-03-07 07:24] VITALS: BP 145/75
--- NOTE | 2019-03-07 07:43 | UC ---
Throat Pain/Nasal Gian HPI - HPI Summary HPI Summary: 2 DAYS OF BODY ACHES, CHILLS, SUBJECTIVE FEVER AND SORE THROAT THAT HAVE SINCE IMPROVED EXCEPT FOR PERSISTENT SORE THROAT. NO COUGH, CONGESTION/RHINITIS. - History of Current Complaint Chief Complaint: UCGeneralIllness Stated Complaint: SORE THROAT, COLD Time Seen by Provider: 03/07/19 07:28 Hx Obtained From: Patient Hx Last Menstrual Period: irregular Onset/Duration: Gradual Onset, Lasting Days, Still Present - BUT BETTER Severity: Moderate Pain Intensity: 5 Pain Scale Used: 0-10 Numeric Cough: None Associated Signs & Symptoms: Positive: Fever - SUBJECTIVE - Allergies/Home Medications Allergies/Adverse Reactions: Allergies Allergy/AdvReac Type Severity Reaction Status Date / Time No Known Allergies Allergy Verified 03/07/19 07:24 Home Medications: Home Medications Ibuprofen TAB* [Advil TAB*] 400 mg PO Q6H PRN 03/07/19 [History Confirmed ] PMH/Surg Hx/FS Hx/Imm Hx Endocrine History: Diabetes - PREDIABETES Respiratory History: Asthma - Surgical History Surgical History: Yes Surgery Procedure, Year, and Place: pylonidal cyst. wisdom teeth. surgery for uterine fibroids july 2018 - Family History Known Family History: Positive: Hypertension Negative: Cardiac Disease, Diabetes - Social History Alcohol Use: Weekly Alcohol Amount: wine/beer Substance Use Type: None Smoking Status (MU): Never Smoked Tobacco Review of Systems All Other Systems Reviewed And Are Negative: Yes Constitutional: Positive: Fever, Chills, Fatigue ENT: Positive: Sore Throat Respiratory: Positive: Negative Cardiovascular: Positive: Negative Gastrointestinal: Positive: Negative Musculoskeletal: Positive: Myalgia Physical Exam Triage Information Reviewed: Yes Appearance: Well-Appearing, No Pain Distress, Well-Nourished Vital Signs: Initial Vital Signs Temp 96.4 F 03/07/19 07:20 Pulse 91 03/07/19 07:20 Resp 19 03/07/19 07:20 BP 145/75 03/07/19 07:20 Pulse Ox 99 03/07/19 07:20 Laboratory Tests 03/07/19 07:44 Group A Strep Rapid Negative Vital Signs Reviewed: Yes Eyes: Positive: Conjunctiva Clear ENT: Positive: Hearing grossly normal, Pharynx normal, TMs normal Neck: Positive: Supple, Nontender, No Lymphadenopathy Respiratory Exam: Normal Cardiovascular Exam: Normal Abdomen Description: Positive: Soft Musculoskeletal: Positive: No Edema Neurological: Positive: Alert Psychological: Positive: Age Appropriate Behavior Skin: Negative: Rashes Throat Pain/Nasal Course/Dx - Course Course Of Treatment: STREP NEGATIVE. LIKELY VIRAL ETIOLOGY OF SYMPTOMS. PATIENT IS ALREADY IMPROVING. CONTINUE CONSERVATIVE MANAGEMENT WITH REST, HYDRATION, OTC MEDS NEEDED. - Differential Dx/Diagnosis Provider Diagnosis: Acute pharyngitis Discharge ED - Sign-Out/Discharge Documenting (check all that apply): Patient Departure All imaging exams completed and their final reports reviewed: No Studies - Discharge Plan Condition: Stable Disposition: HOME Patient Education Materials: Pharyngitis (ED) Referrals: Lynn Sheth MD [Primary Care Provider] - If Needed Additional Instructions: STREP NEGATIVE. YOUR SYMPTOMS ARE LIKELY VIRALLY MEDIATED AND SHOULD CONTINUE TO RESOLVE ON THEIR OWN WITH TIME. NO INDICATION FOR ANTIBIOTICS AT PRESENT. REST, HYDRATE, OTC MEDS NEEDED. SEEK FOLLOW-UP IF YOU ARE NOT IMPROVING OVER THE NEXT 1-2 WEEKS. - Billing Disposition and Condition Condition: STABLE Disposition: Home
== END 2019-03-07 08:09 | disposition home or self-care (01) ==
LOC: UCEAST 07:09
DX: J02.9 Acute pharyngitis, unspecified (principal); R53.83 Other fatigue; E11.9 Type 2 diabetes mellitus without complications; J45.909 Unspecified asthma, uncomplicated
CPT/HCPCS: 87651; 99211; G0463

== ENCOUNTER 2019-03-10 07:19 | Emergency (ER) | payer OTHER ==
[2019-03-10 07:33] VITALS: BP 142/71
--- NOTE | 2019-03-10 08:15 | UC ---
Respiratory Complaint HPI - HPI Summary HPI Summary: PATIENT HAD sore throat and runny nose 5-6 day sago, was seen here 2 days later (strep neg). she has become progressively more sick, yesterday sinus pressure caused pain and prevented sleep. this am she is coughing up green phlegm. has tried OTC cough meds w/o relief - History of Current Complaint Chief Complaint: UCRespiratory Stated Complaint: COUGH CONGESTION Time Seen by Provider: 03/10/19 08:02 Hx Obtained From: Patient Hx Last Menstrual Period: beginning December; on continuous control Onset/Duration: Gradual Onset Timing: Constant Severity Initially: Mild Severity Currently: Moderate Pain Intensity: 6 Character: Cough: Productive Aggravating Factors: Exertion, Recumbent Position Alleviating Factors: Spontaneous Resolution Associated Signs And Symptoms: Positive: Fever, URI, Nasal Congestion, Sinus Discomfort. Negative: Pleuritic Chest Pain, Wheezing, Hemoptysis, Dizziness, Calf Pain Related History: Seasonal Allergies - Allergies/Home Medications Allergies/Adverse Reactions: Allergies Allergy/AdvReac Type Severity Reaction Status Date / Time No Known Allergies Allergy Verified 03/10/19 07:32 Home Medications: Home Medications D-Methorphan/PE/Acetaminophen [Day Multi-Symp Flu-Severe Cold] 1 tab PO DAILY PRN 03/10/19 [History Confirmed 03/10/19] PMH/Surg Hx/FS Hx/Imm Hx Previously Healthy: Yes Endocrine History: Diabetes Respiratory History: Asthma - Surgical History Surgical History: Yes Surgery Procedure, Year, and Place: pylonidal cyst. wisdom teeth. surgery for uterine fibroids july 2018 - Family History Known Family History: Positive: Hypertension Negative: Cardiac Disease, Diabetes - Social History Occupation: Employed Full-time Lives: Alone Alcohol Use: Weekly Alcohol Amount: wine/beer Substance Use Type: None Smoking Status (MU): Never Smoked Tobacco Review of Systems All Other Systems Reviewed And Are Negative: Yes Constitutional: Positive: Fever, Fatigue Skin: Positive: Negative. Negative: Rash Eyes: Positive: Negative ENT: Positive: Sore Throat, Sinus Congestion, Sinus Pain/Tenderness. Negative: Ear Ache Respiratory: Positive: Cough Cardiovascular: Positive: Negative. Negative: Chest Pain Gastrointestinal: Positive: Negative. Negative: Diarrhea, Nausea Neurological: Positive: Negative Psychological: Positive: Negative Is Patient Immunocompromised?: No Physical Exam Triage Information Reviewed: Yes Appearance: Well-Appearing, No Pain Distress, Obese Vital Signs: Initial Vital Signs Temp 98.9 F 03/10/19 07:26 Pulse 106 03/10/19 07:26 Resp 16 03/10/19 07:26 BP 142/71 03/10/19 07:26 Pulse Ox 97 03/10/19 07:26 Vital Signs Reviewed: Yes Eyes: Positive: Conjunctiva Clear ENT: Positive: Nasal congestion, Nasal drainage, TMs normal, Sinus tenderness, Other - large amount thick yellow PND Neck exam: Normal Neck: Positive: No Lymphadenopathy Respiratory Exam: Normal Respiratory: Positive: Lungs clear Cardiovascular Exam: Normal Cardiovascular: Positive: RRR Neurological Exam: Normal Neurological: Positive: Alert Psychological Exam: Normal Skin: Negative: Rashes Respiratory Course/Dx - Differential Dx/Diagnosis Differential Diagnosis/HQI/PQRI: Asthma, Bronchitis, Influenza, Lower Resp Infection, Sinusitis Provider Diagnosis: Sinusitis Discharge ED - Sign-Out/Discharge Documenting (check all that apply): Patient Departure All imaging exams completed and their final reports reviewed: No Studies - Discharge Plan Condition: Good Disposition: HOME Prescriptions: Amoxicillin/Clavulanate TAB* [Augmentin TAB 875*] 875 mg PO BID #20 tab Patient Education Materials: Sinusitis (ED) Referrals: Lynn Sheth MD [Primary Care Provider] - 2 Days (if no better) Additional Instructions: drink plenty of fluids rest and use humidifier at bedside start antibiotic and take as directed try over the counter cough and cold medication for symptom relief (DayQuil/ NyQuil is an example) - Billing Disposition and Condition Condition: GOOD Disposition: Home
== END 2019-03-10 08:32 | disposition home or self-care (01) ==
LOC: UCEAST 07:19
DX: J32.9 Chronic sinusitis, unspecified (principal); J02.9 Acute pharyngitis, unspecified; E11.9 Type 2 diabetes mellitus without complications; J45.909 Unspecified asthma, uncomplicated; E66.9 Obesity, unspecified
CPT/HCPCS: 99212; G0463